=== PATIENT | male | born 1965 | race American Indian/Alaskan Native ===

== ENCOUNTER 2022-08-19 18:25 | Emergency (ER) | payer MEDICAID, OTHER ==
[~2022-08-19] VITALS: Ht 170.2 cm; Wt 88.6 kg
[~2022-08-19 18:25] MED LIST: CYCL-394 PO; IBUP-1984 PO
[2022-08-19 18:54] VITALS: BP_DIAS 104
[2022-08-19] MEDS ORDERED: amLODIPine 5mg tablet PO ONE (19:20)
[2022-08-19 19:30] VITALS: BP_SYST 186
== END 2022-08-19 19:51 | disposition home or self-care (01) ==
LOC: ER 18:26
DX: I10 Essential (primary) hypertension (principal); Z02.89 Encounter for other administrative examinations
CPT/HCPCS: 93005; 99283

== ENCOUNTER 2023-01-26 07:03 | Inpatient (IN) | payer OTHER ==
[2023-01-19 15:16] LABS: BILIRUBIN,URINE NEGATIVE (Neg); CLARITY,URINE CLEAR (Clear); COLOR,URINE YELLOW (Yellow); GLUCOSE, URINE NEGATIVE (Neg); KETONES,URINE TRACE mg/dl (Neg); LEUKOCYTE ESTERASE ,URINE NEGATIVE (Neg); NITRITES, URINE NEGATIVE (Neg); OCCULT BLOOD,URINE NEGATIVE (Neg); PROTEIN,URINE NEGATIVE (Neg); UROBILINOGEN,URINE 0.2 E.U/dL (0.2-1.0)
[2023-01-19 15:17] LABS: BASOPHILS % (AUTO) 0.5 % (0-1); EOSINOPHILS # (AUTO) 0.2 X10'3 (0-0.9); EOSINOPHILS % (AUTO) 1.9 % (0-6); LYMPHOCYTES # (AUTO) 1.1 X10'3 (1.1-4.8); LYMPHOCYTES % (AUTO) 14.1 % (21-51); MEAN CORPUSCULAR HGB CONC 34.4 g/dL (33.0-36.5); MEAN CORPUSCULAR VOLUME 87.2 FL (78-98); MEAN PLATELET VOLUME 6.8 FL (7.4-10.4); MONOCYTES # (AUTO) 0.8 X10'3 (0-0.9); MONOCYTES % (AUTO) 9.4 % (2-12); NEUTROPHILS % (AUTO) 74.1 % (42-75); PRE OP HEMATOCRIT 43.1 % (42.0-52.0); PRE OP HEMOGLOBIN 14.8 g/dL (14.0-17.9); PRE OP PLATELET COUNT 251 X10'3 (140-440); PRE OP WHITE BLOOD COUNT 8.1 10'3 (4.8-10.8); RED BLOOD COUNT 4.94 X10'6 (4.70-6.10); RED CELL DISTRIBUTION WIDTH 13.9 % (11.5-14.5)
[2023-01-19 15:19] LABS: UA COLLECTION TYPE CLN CATCH MIDSTREAM
[2023-01-19 15:29] LABS: ALBUMIN 3.8 G/DL (3.4-5.0); ALKALINE PHOSPHATASE 120 IU/L (46-116); BLOOD UREA NITROGEN 19 MG/DL (7-18); BUN/CREATININE RATIO 21.3 (10.0-20.0); CALCIUM 9.3 MG/DL (8.5-10.1); CHLORIDE 102 MMOL/L (99-107); CREATININE 0.89 MG/DL (0.60-1.10); PRE OP ALT 38 U/L (30-65); PRE OP ANION GAP 5 (8-16); PRE OP AST 23 U/L (10-37); PRE OP BILIRUB, TOTAL 0.3 MG/DL (0.0-1.0); PRE OP GLUCOSE 102 MG/DL (70-104); PRE OP POTASSIUM 4.2 MMOL/L (3.4-5.1); PRE OP SODIUM 136 MMOL/L (135-145); TOTAL CARBON DIOXIDE 29.5 MMOL/L (24-32); TOTAL PROTEIN 7.8 G/DL (6.4-8.2); eGFR 88 ML/MIN
[~2023-01-26] VITALS: Ht 170.2 cm; Wt 89.4 kg
[2023-01-26] VITALS (21 sets, daily range): BP systolic 127–164; BP diastolic 62–87; PULSE 61–84; RESP 12–20; TEMP 97.8–98.8; O2SAT 94–98
[~2023-01-26 07:03] MED LIST changes: +BCAA; +CREATINE; -CYCL-394 PO; -IBUP-1984 PO; +METH10OR11 PO; +MVI; +TESTOSTERONE BOOSTER; +clindamycin-Cleocin 900mg/D5W 50 ML IV ONE; +famotidine 20mg tablet PO ONE
[2023-01-26] MEDS: ringers solution, lacted 1,000 ML IV SCH ×4 (07:46→19:40)
[2023-01-26] MEDS ORDERED: BUPIVAcaine/PF 2.5 mg/ml (0.25%) 30ml vial ONE (09:04)
[2023-01-26] MEDS ORDERED: fentaNYL /PF 50mcg/ml 5ml ampule ONE (10:14)
[2023-01-26] MEDS ORDERED: midazolam 1 mg/ML 2ml injection ONE (10:14)
[2023-01-26] MEDS ORDERED: propofol inj 20 ML IV ONE (10:15)
[2023-01-26] MEDS ORDERED: LIDOcaine 2% (20mg/ml) 5ml vial ONE (10:16)
[2023-01-26] MEDS ORDERED: neostigmine methylsulfate 1 MG/ML 10ml vial ONE (10:16)
[2023-01-26] MEDS ORDERED: rocuronium 10mg/ml inj IV ONE (10:16)
[2023-01-26] MEDS ORDERED: dexamethasone sod phosphate 4mg/ml inj. ONE (10:16)
[2023-01-26] MEDS ORDERED: glycopyrrolate 0.2mg/ml inj ONE (10:16)
[2023-01-26] MEDS ORDERED: morphine 2 MG/ML inj. syringe IV PRN (10:35)
[2023-01-26] MEDS ORDERED: labetalol 20mg/4ml (5mg/ml) syringe IV PRN (10:35)
[2023-01-26] MEDS ORDERED: hydrALAZINE 20mg/ml inj. IV PRN (10:35)
[2023-01-26] MEDS ORDERED: ringers solution, lacted 1,000 ML IV SCH (10:35)
[2023-01-26] MEDS ORDERED: fentaNYL/PF 50MCG/1 ML 2ML syringe IV PRN (10:35)
[2023-01-26] MEDS ORDERED: ondansetron/PF 4mg/2ml inj IV PRN (10:35)
[2023-01-26] MEDS ORDERED: morphine 4 MG/ML inj SYRINge IV PRN (10:35)
[2023-01-26] MEDS ORDERED: ondansetron/PF 4mg/2ml inj ONE (10:47)
[2023-01-26] MEDS ORDERED: sevoflurane 250ml liquid IH ONE (10:47)
[2023-01-26] MEDS ORDERED: acetaminophen 1,000mg/100ml IV 100 ML IV ONE (11:10)
[2023-01-26] MEDS ORDERED: hydrALAZINE 20mg/ml inj. IV ONE (11:59)
[2023-01-26] MEDS ORDERED: BUPIVAcaine/PF 2.5 mg/ml (0.25%) 30ml vial IJ ONE (12:27)
[2023-01-26] MEDS: fentaNYL/PF 50MCG/1 ML 2ML syringe IV PRN ×2 (12:40→12:45)
--- NOTE | 2023-01-26 13:39 | NUR ---
PATIENT HAS MET ALL CRITERIA FOR TRANSFER TO ORTHO FLOOR. VSS. DRESSINGS INTACT. BED LOW, CALL LIGHT PRESENT AND 2 RAILS UP. RN PRESENT TO ACCEPT CARE OF PATIENT AND REPORT HAS BEEN CALLED. ALL QUESTIONS ANSWERED TO ACCEPTING RN. Addendum: 01/26/23 at 1346 by Christiano Gibson RN Amended: Links added.
--- NOTE | 2023-01-26 13:55 | NUR ---
Patient in room ORTHO 4014. I have received report from ARTI Draper and had the opportunity to ask questions and assume patient care.
[2023-01-26] MEDS ORDERED: naloxone 0.4 mg/ml inj IV PRN (15:40)
[2023-01-26] MEDS ORDERED: PCA WASTE DOCUMENTATION 1 MG ML MC PRN (15:40)
[2023-01-26] MEDS ORDERED: HYDROmorph/NS 0.2 mg/ml PCA 100 ML IV SCH (16:30)
[2023-01-26] MEDS: HYDROmorphone 1 mg/ml syringe IV PRN ×3 (17:46→22:45)
--- NOTE | 2023-01-26 18:20 | NUR ---
Problems reprioritized. Patient report given, questions answered & plan of care reviewed with ARTI Bryan.
--- NOTE | 2023-01-26 18:51 | NUR ---
pt walking. explained splinting and walking. pt takes methadone in am only and last dose was this am. will bring in bottle of methadone later tonight to verify with RX. told pt when dilaudid was next due.
--- NOTE | 2023-01-26 20:38 | NUR ---
transferred liquid methadone to pharmacy. 8 bottles full, 19 empty. verified with Antony, international student counselor at [employer] [facility] [employer] [facility] as well as patient. pt will keep control of empty bottles so that he can get his next batch when he turns in his empty bottles. rx will dispense his bottle qam. receipt from med bag given to patient, paper copy in chart.
--- NOTE | 2023-01-26 23:34 | NUR ---
Student documentation: I have reviewed interventions, assessments performed and documented by Yaniv LAGUNA [facility].
[2023-01-27 01:17] VITALS: BP 167/81; PULSE 69; RESP 18; TEMP 98; O2SAT 97
[2023-01-27] MEDS: acetaminophen 325mg tablet PO PRN (01:26)
[2023-01-27] MEDS: HYDROmorphone 1 mg/ml syringe IV PRN ×5 (01:29→23:28)
[2023-01-27 06:00] VITALS: BP 155/76; PULSE 73; RESP 17; TEMP 98.5; O2SAT 94
[2023-01-27] MEDS: methadone 10mg tablet PO SCH (06:06)
--- NOTE | 2023-01-27 06:42 | NUR ---
reported to days. noted pt walking halls - states he has passed gas. still no diet order. has been on CL only tonight.
--- NOTE | 2023-01-27 06:48 | NUR ---
Patient in room ORTHO 4014. I have received report from ARTI Bryan and had the opportunity to ask questions and assume patient care.
[2023-01-27 10:00] VITALS: BP 141/85; PULSE 78; RESP 16; TEMP 99.2; O2SAT 94
[2023-01-27 10:24] VITALS: RESP 18; O2SAT 97
[2023-01-27] MEDS: ringers solution, lacted 1,000 ML IV SCH (17:44)
[2023-01-27 18:00] VITALS: BP 177/82; PULSE 70; RESP 15; TEMP 97.9; O2SAT 96
--- NOTE | 2023-01-27 18:50 | NUR ---
Problems reprioritized. Patient report given, questions answered & plan of care reviewed with ARTI Roa.
--- NOTE | 2023-01-27 18:55 | NUR ---
Patient in room ORTHO 4014. I have received report from ARTI AMEZCUA and had the opportunity to ask questions and assume patient care.
[2023-01-27 22:00] VITALS: BP 152/79; PULSE 79; RESP 16; TEMP 98.3; O2SAT 95
[2023-01-28] MEDS: HYDROmorphone 1 mg/ml syringe IV PRN (04:18)
--- NOTE | 2023-01-28 06:17 | NUR ---
Patient in room ORTHO 4014. I have received report from Eleonora [facility] and had the opportunity to ask questions and assume patient care.
--- NOTE | 2023-01-28 06:18 | NUR ---
Problems reprioritized. Patient report given, questions answered & plan of care reviewed with ARTI DONALDSON.
[2023-01-28] MEDS: methadone 10mg tablet PO SCH (07:57)
[2023-01-28 08:00] VITALS: BP 150/95; PULSE 75; RESP 17; TEMP 98.4; O2SAT 96; O2SAT 97
[2023-01-28 10:00] VITALS: BP 158/73; PULSE 66; RESP 17; RESP 18; TEMP 98.1; O2SAT 90; O2SAT 97
[2023-01-28] MEDS: acetaminophen 325mg tablet PO PRN (11:23)
[2023-01-28] MEDS ORDERED: HYDR-3965 PO ×2 (13:56→14:12)
== END 2023-01-28 17:32 | disposition home or self-care (01) | DRG 331 ==
LOC: PAS 07:03 → PAS IN 13:28 → ORTHO 4S 13:40
PROVIDERS: ADMIT Surgery; ATTEND Surgery
PROC: 0DB80ZZ Excision of Small Intestine, Open Approach (ICD-10-PCS; 2023-01-26)
PROC: 0WPG0JZ Removal of Synthetic Substitute from Peritoneal Cavity, Open Approach (ICD-10-PCS; 2023-01-26)
PROC: 0WQF0ZZ Repair Abdominal Wall, Open Approach (ICD-10-PCS; principal; 2023-01-26 10:47)
DX: K43.2 Incisional hernia without obstruction or gangrene (principal); Z91.030 Bee allergy status; Z88.0 Allergy status to penicillin; Z82.0 Family history of epilepsy and other diseases of the nervous system; Z87.891 Personal history of nicotine dependence; Z79.891 Long term (current) use of opiate analgesic; K66.0 Peritoneal adhesions (postprocedural) (postinfection)
CPT/HCPCS: 36415; 80053; 81003; 82948; 85025; 87081; 93005; A4618; A6258; A7000; G0378; J0131; J0360; J1100; J1170; J2250; J2270; J2405; J2704; J2710; J3010; J3490; J7120